=== PATIENT | male | born 1930 | race Caucasian/White ===

== ENCOUNTER 2018-01-27 06:24 | Emergency (ER) | payer MEDICARE ==
--- NOTE | 2018-01-27 07:24 | EDM.PDOC ---
ED HPI GENERAL MEDICAL PROBLEM - General Chief Complaint: General Stated Complaint: dyspnea Time Seen by Provider: 01/27/18 07:03 Source of Information: Reports: Patient History Limitations: Reports: No Limitations - History of Present Illness INITIAL COMMENTS - FREE TEXT/NARRATIVE: Patient presented with sudden increase SOB/chest congestion. Called EMS. Complained of some left sided chest discomfort. Seen two weeks ago at [place] for non-stemi. Discharged over a week ago. Discharged with indwelling cath due to suspected prostate issues. Was to have andrade for 14 days, today was to get it out. Was feeling better overall since discharge until yesterday. Lives in mobile home. Able to cook for self. No fevers or other acute complaints. On O2 upon arrival via [place]. Sats 90-91% on 4-5L. RR elevated in 30s initially. On Plavix. Takes 1 baby ASA daily. Left Chest Pain Score (Numeric/FACES): 6 - Related Data Allergies Allergy/AdvReac Type Severity Reaction Status Date / Time No Known Drug Allergies Allergy none Verified 01/27/18 06:44 Home Meds: Home Meds Lisinopril [Lisinopril] 20 mg PO DAILY 01/16/16 [History] ALPRAZolam [Alprazolam] 1 mg PO BEDTIME PRN 01/27/18 [History] Aspirin 81 mg PO DAILY 01/27/18 [History] Clopidogrel [Plavix] 75 mg PO DAILY 01/27/18 [History] Rosuvastatin [Crestor] 20 mg PO DAILY 01/27/18 [History] glipiZIDE [Glucotrol] 2.5 mg PO DAILY 01/27/18 [History] Past Medical History HEENT History: Reports: Hard of Hearing, Impaired Vision Cardiovascular History: Reports: Aneurysm, High Cholesterol, Hypertension Genitourinary History: Reports: Other (See Below) Other Genitourinary History: bladder CA Musculoskeletal History: Reports: Arthritis Endocrine/Metabolic History: Reports: Diabetes, Type II Oncologic (Cancer) History: Reports: Bladder - Past Surgical History HEENT Surgical History: Reports: Cataract Surgery, Eye Surgery GI Surgical History: Reports: Cholecystectomy, Hernia Repair/Other Male Surgical History: Reports: TURBT-Transurethral Resection of Bladder Tumor Social & Family History - Tobacco Use Smoking Status *Q: Never Smoker Second Hand Smoke Exposure: No - Recreational Drug Use Recreational Drug Use: No ED ROS GENERAL - Review of Systems Review Of Systems: See Below Constitutional: Denies: Fever, Chills, Weight Loss, Weight Gain HEENT: Reports: No Symptoms Respiratory: Reports: Shortness of Breath, Wheezing. Denies: Pleuritic Chest Pain (pain does not change with breathing/movement) Cardiovascular: Reports: Chest Pain, Dyspnea on Exertion, Edema (chronic issues with waxing/waning edema), Orthopnea. Denies: Lightheadedness, Palpitations, Syncope GI/Abdominal: Reports: No Symptoms : Reports: Other (Andrade/Prostate issues) Musculoskeletal: Reports: No Symptoms Skin: Reports: No Symptoms Neurological: Reports: No Symptoms Psychiatric: Reports: No Symptoms ED EXAM, GENERAL - Physical Exam Exam: See Below Exam Limited By: No Limitations General Appearance: Alert, WD/WN, No Apparent Distress Eye Exam: Bilateral Eye: EOMI, PERRL Ears: Normal External Exam Nose: No: Nasal Swelling, Nasal Drainage Throat/Mouth: Normal Lips, Normal Voice, No Airway Compromise Head: Atraumatic, Normocephalic Neck: Normal Inspection, Supple, Non-Tender, Full Range of Motion Respiratory/Chest: Decreased Breath Sounds (bilat), Crackles, Rhonchi, Wheezing. No: Stridor, Accessory Muscle Use, Retractions Cardiovascular: Tachycardia Peripheral Pulses: 2+: Radial (L), Radial (R) GI/Abdominal: Normal Bowel Sounds, Soft, Non-Tender, No Distention (Male) Exam: Deferred Rectal (Males) Exam: Deferred Back Exam: No: CVA Tenderness (L), CVA Tenderness (R), Muscle Spasm, Paraspinal Tenderness, Vertebral Tenderness Extremities: Non-Tender, Normal Capillary Refill, Other (mild lower extremity edema) Neurological: Alert, Oriented, Normal Cognition, No Motor/Sensory Deficits Psychiatric: Normal Affect, Normal Mood Skin Exam: Warm, Dry, Intact, Normal Color EKG INTERPRETATION EKG Date: 01/27/18 Time: 06:27 Rhythm: Other (tachycardia) Rate (Beats/Min): 109 [place]: Normal P-Wave: Present QRS: Wide ST-T: Other (some depresseion noted 2,3,avf, lateral ventricular leads. Elevated voltage indicating LVH.) QT: Normal Comparison: NA - No Prior EKG Course - Vital Signs Last Recorded V/S: Last Vital Signs Temp 36.8 C 01/27/18 06:25 Pulse 97 01/27/18 07:07 Resp 18 01/27/18 07:07 BP 154/83 H 01/27/18 07:07 Pulse Ox 98 01/27/18 07:07 - Orders/Labs/Meds Orders: Active Orders 24 hr Category Date Time Status Cardiac Monitoring [RC] . DIRECTED Care 01/27/18 07:32 Active EKG Documentation Completion [RC] ASDIRECTED Care 01/27/18 06:34 Active Peripheral IV Care [RC] . DIRECTED Care 01/27/18 07:50 Active RT Aerosol Therapy [RC] ASDIRECTED Care 01/27/18 07:18 Ordered Chest 2V [CR] Stat Exams 01/27/18 07:17 Ordered Sodium Chloride 0.9% [Saline Flush] Med 01/27/18 07:32 Active 10 ml FLUSH ASDIRECTED PRN Peripheral IV Insertion Adult [OM.PC] Routine Oth 01/27/18 06:37 Ordered EKG 12 Lead [EK] Routine Ther 01/27/18 06:34 Ordered Medication Orders Sodium Chloride (Saline Flush) 10 ml FLUSH ASDIRECTED PRN PRN Reason: IV Use Last Admin: 01/27/18 07:38 Dose: 10 ml Labs: Laboratory Tests 01/27/18 01/27/18 Range/Units 06:46 06:46 WBC 13.6 H (4.0-10.2) K/uL RBC 3.82 L (4.33-5.41) M/uL Hgb 12.1 L (13.1-16.8) g/dL Hct 36.2 L (39.0-49.0) % MCV 94.8 (84.0-98.0) fL MCH 31.7 (28.2-33.3) pg MCHC 33.4 (31.7-36.0) g/dL RDW 14.1 (11.2-14.1) % Plt Count 195 (150-350) K/uL Neut % (Auto) 82.4 H (45.0-80.0) % Lymph % (Auto) 13.4 (10.0-50.0) % [place] % (Auto) 2.8 (2.0-14.0) % Eos % (Auto) 1.0 (0.0-5.0) % Baso % (Auto) 0.4 (0.0-2.0) % Neut # (Auto) 11.19 H (1.40-7.00) K/uL Lymph # (Auto) 1.82 (0.50-3.50) K/uL [place] # (Auto) 0.38 (0.00-1.00) K/uL Eos # (Auto) 0.14 (0.00-0.50) K/uL Baso # (Auto) 0.05 (0.00-0.20) K/uL Sodium 141 (136-145) mmol/L Potassium 4.1 (3.5-5.1) mmol/L Chloride 104 (98-107) mmol/L Carbon Dioxide 26.8 (21.0-32.0) mmol/L BUN 32 H (7-18) mg/dL Creatinine 1.41 H (0.51-1.17) mg/dL Est Cr Clr Drug Dosing 35.52 mL/min Estimated GFR (MDRD) 47 mL/min Glucose 178 H (74-106) mg/dL Calcium 9.0 (8.5-10.1) mg/dL Total Bilirubin 0.6 (0.2-1.0) mg/dL AST 35 (15-37) U/L ALT 29 (12-78) U/L Alkaline Phosphatase 71 (46-116) IU/L Troponin I 0.167 H* (0.000-0.056) ng/mL NT-Pro-B Natriuret Pep 7000 H (0-125) pg/mL Total Protein 8.3 H (6.4-8.2) g/dL Albumin 3.8 (3.4-5.0) g/dL Meds: Medications Generic Name Dose Route Start Last Admin Trade Name Freq PRN Reason Stop Dose Admin Sodium Chloride 10 ml 01/27/18 07:32 01/27/18 07:38 Saline Flush FLUSH 10 ml ASDIRECTED PRN Administration IV Use Discontinued Medications Generic Name Dose Route Start Last Admin Trade Name Freq PRN Reason Stop Dose Admin Albuterol/Ipratropium 3 ml 01/27/18 07:18 01/27/18 07:36 Duoneb 3.0-0.5 Mg/3 Ml NEB 01/27/18 07:19 3 ml ONETIME ONE Administration Aspirin 324 mg 01/27/18 07:55 01/27/18 08:08 Aspirin PO 01/27/18 07:56 243 mg ONETIME ONE Administration Furosemide 40 mg 01/27/18 07:17 01/27/18 07:37 Lasix IVPUSH 01/27/18 07:18 40 mg NOW ONE Administration Methylprednisolone Sodium Succinate 40 mg 01/27/18 07:18 01/27/18 07:38 Solu-Medrol IVPUSH 01/27/18 07:19 40 mg ONETIME ONE Administration Nitroglycerin 0.4 mg 01/27/18 08:03 Nitrostat SL 01/27/18 08:04 ONETIME ONE - Radiology Interpretation Free Text/Narrative:: Chest xray: COPD/CHF, bilateral pleural effusions. Cardiomegaly. - Re-Assessments/Exams Free Text/Narrative Re-Assessment/Exam: 01/27/18 08:18 Significant improvement in SOB and almost complete resolution of chest discomfort after single DuoNeb. Nitroglycerin SL held as pain was so much better. Vital signs remained stable. Solumedrol/Lasix given. Troponin, BNP, WBC elevated. Troponin could be influenced by CHF. Call placed to [place]. Patient discussed with , Hospitalist. Our EKG findings essentially mirror patient's EKG on record there from several weeks ago. Patient was evaluated by Cardiology at that time with further follow up planned as outpatient. Transfer arranged to [place] for further evaluation and continued care. Patient did desire Cardiology input as to if "there is a blocked artery". He did make it known that he is DNR/DNI but otherwise would like full medical care. He is also aware that given his age he may not be a candidate for some procedures given his age. Departure - Departure Disposition: DC/Tfer to Acute Hospital 02 Condition: Fair Clinical Impression: Cardiomegaly, Pleural effusion, Elevated troponin CHF exacerbation Qualifiers: Heart failure type: unspecified Qualified Code(s): I50.9 - Heart failure, unspecified COPD (chronic obstructive pulmonary disease) Qualifiers: COPD type: emphysema Emphysema type: unspecified Qualified Code(s): J43.9 - Emphysema, unspecified Chest pain Qualifiers: Chest pain type: unspecified Qualified Code(s): R07.9 - Chest pain, unspecified Hypertension Qualifiers: Hypertension type: essential hypertension Qualified Code(s): I10 - Essential ( primary) hypertension - Discharge Information Referrals: Claire Key PA-C [Primary Care Provider] - Forms: ED Department Discharge - My Orders Last 24 Hours: My Active Orders 01/27/18 06:34 EKG Documentation Completion [RC] ASDIRECTED EKG 12 Lead [EK] Routine 01/27/18 06:37 Peripheral IV Insertion Adult [OM.PC] Routine 01/27/18 07:17 Chest 2V [CR] Stat 01/27/18 07:18 RT Aerosol Therapy [RC] ASDIRECTED 01/27/18 07:32 Cardiac Monitoring [RC] . DIRECTED Sodium Chloride 0.9% [Saline Flush] 10 ml FLUSH ASDIRECTED PRN 01/27/18 07:50 Peripheral IV Care [RC] . DIRECTED - Assessment/Plan Last 24 Hours: My Active Orders 01/27/18 06:34 EKG Documentation Completion [RC] ASDIRECTED EKG 12 Lead [EK] Routine 01/27/18 06:37 Peripheral IV Insertion Adult [OM.PC] Routine 01/27/18 07:17 Chest 2V [CR] Stat 01/27/18 07:18 RT Aerosol Therapy [RC] ASDIRECTED 01/27/18 07:32 Cardiac Monitoring [RC] . DIRECTED Sodium Chloride 0.9% [Saline Flush] 10 ml FLUSH ASDIRECTED PRN 01/27/18 07:50 Peripheral IV Care [RC] . DIRECTED
[2018-01-27] MEDS: Albuterol/Ipratropium 3.0-0.5 MG/3 ML Neb Soln NEB ONE (07:36)
[2018-01-27] MEDS: Furosemide 40 MG/4 ML VIAL IVPUSH ONE (07:37)
[2018-01-27] MEDS: methylPREDNISolone Sodium Succinate 40 MG/1 ML SDV IVPUSH ONE (07:38)
[2018-01-27] MEDS: Sodium Chloride 0.9% 10 ML Syringe FLUSH PRN (07:38)
[2018-01-27] MEDS: Aspirin 81 MG Tab.Chew PO ONE (08:08)
[2018-01-27] MEDS: Nitroglycerin 0.4 MG Tab.SL SL ONE (08:59)
[2018-01-27] MEDS ORDERED: Ondansetron 4 MG/2 ML SDV IVPUSH ONE (12:14)
[2018-01-27] MEDS ORDERED: Sodium Chloride 0.9% 10 ML Syringe FLUSH PRN (12:14)
[2018-01-27 17:45] VITALS: BP 146/75
== END 2018-01-27 12:00 ==
LOC: LL.ED 06:24
DX: J43.9 Emphysema, unspecified (principal); I11.0 Hypertensive heart disease with heart failure; I50.9 Heart failure, unspecified; E11.9 Type 2 diabetes mellitus without complications; E78.00 Pure hypercholesterolemia, unspecified; J90 Pleural effusion, not elsewhere classified; R79.89 Other specified abnormal findings of blood chemistry; Z79.82 Long term (current) use of aspirin; Z79.899 Other long term (current) drug therapy
CPT/HCPCS: 36415; 71046; 80053; 83880; 84484; 85025; 93005; 96374; 96375; 99285; A9270-GY; J1940; J2920; J7050